=== PATIENT | male | born 1990 | race African-American/Black ===

== ENCOUNTER 2025-04-11 04:05 | Emergency (ER) | payer OTHER ==
[~2025-04-11] VITALS: Ht 170.2 cm; Wt 81.8 kg
[2025-04-11 04:11] VITALS: TEMP 97.5
[2025-04-11] MEDS: ONDANSETRON HCL 4 MG/2 ML VIAL IVP ONE (05:02)
[2025-04-11] MEDS: SODIUM CHLORIDE 0.9% 1,000 ML IV ONE (05:02)
[2025-04-11] MEDS ORDERED: ONDA-104 PO (05:03)
[2025-04-11 05:08] LABS: CALCIUM, TOTAL 8.9 mg/dL (8.8-10.5); CREATININE 1.17 mg/dL (0.60-1.30); GLOMERULAR FILTR. RATE CALC > 60 mL/min (>60); GLUCOSE,RANDOM 115 mg/dL (70-110); PLATELET COUNT (AUTO) 173 K/uL (150-450); RED BLOOD CELL COUNT(AUTO) 4.93 MIL/uL (4.50-5.90); RED CELL DISTRIBUTION WIDTH 13.1 % (11.5-14.5); SODIUM SERUM 137 mmol/L (136-145); UREA NITROGEN, BLOOD 17 mg/dL (7-18); WHITE BLOOD COUNT (AUTO) 8.1 K/uL (4.5-11.0)
[2025-04-11 05:14] LABS: ASPARTATE AMINOTRANSFERASE 17.0 U/L (15-37); TOTAL PROTEIN, SERUM 6.6 g/dL (6.4-8.2)
[2025-04-11 05:53] VITALS: BP 118/71; PULSE 63; RESP 16; O2SAT 98
== END 2025-04-11 06:12 | disposition home or self-care (01) ==
LOC: EMS 04:05
DX: R11.2 Nausea with vomiting, unspecified (principal); R10.9 Unspecified abdominal pain
CPT/HCPCS: 99283; 96374; 96361; 80048; 80076; 83690; 85025; 36415; J2405; J7030